=== PATIENT | male | born 1980 | race Two or more races ===

== ENCOUNTER 2017-09-14 06:04 | Emergency (ER) | payer OTHER ==
[~2017-09-14] VITALS: Ht 185.4 cm; Wt 117.9 kg
[2017-09-14 06:19] VITALS: Ht 185.4 cm; Wt 117.9 kg
[2017-09-14 07:10] VITALS: BP 130/85
== END 2017-09-14 07:00 | disposition home or self-care (01) ==
LOC: ED 06:04
DX: L01.00 Impetigo, unspecified (principal)
CPT/HCPCS: J0558

== ENCOUNTER 2017-09-19 12:09 | Emergency (ER) | payer OTHER ==
[~2017-09-19] VITALS: Ht 185.4 cm; Wt 118.4 kg
[2017-09-19 12:21] VITALS: Ht 185.4 cm; Wt 118.4 kg
[2017-09-19 14:24] VITALS: BP 130/80
== END 2017-09-19 14:24 | disposition home or self-care (01) ==
LOC: ED 12:09
DX: S29.012A Strain of muscle and tendon of back wall of thorax, initial encounter (principal); V49.9XXA Car occupant (driver) (passenger) injured in unspecified traffic accident, initial encounter; Y93.79 Activity, other specified sports and athletics; Y92.89 Other specified places as the place of occurrence of the external cause; Y99.8 Other external cause status
CPT/HCPCS: J1885

== ENCOUNTER 2017-09-24 14:48 | Emergency (ER) | payer OTHER ==
[~2017-09-24] VITALS: Ht 185.4 cm; Wt 118.4 kg
[2017-09-24 14:51] VITALS: BP 146/89; Ht 185.4 cm; Wt 118.4 kg
== END 2017-09-24 18:32 | disposition left against medical advice (07) ==
LOC: ED 14:48
DX: Z53.21 Procedure and treatment not carried out due to patient leaving prior to being seen by health care provider (principal)